=== PATIENT | male | born 1945 | race Caucasian/White ===

== ENCOUNTER 2024-03-01 07:40 | Emergency (ER) | payer OTHER ==
[~2024-03-01] VITALS: Ht 182.8 cm; Wt 79.8 kg
[2024-03-01] MEDS ORDERED: diphenhydrAMINE hydrochloride 50 MG/ML VIAL IV ONE (08:00)
[2024-03-01] MEDS ORDERED: SODIUM CHLORIDE 0.9% 1,000 ML IV ONE (08:00)
[2024-03-01] MEDS ORDERED: FAMOTIDINE 50 ML IV ONE (08:00)
[2024-03-01] MEDS ORDERED: Metoclopramide Hydrochloride 10 MG/2 ML AMP IV ONE (08:00)
[2024-03-01 08:17] LABS: BASO % 0.6 % (0.0-1.0); EOS % 0.8 % (1.0-4.0); LYMPH # 1.1 10*3/uL (1.3-4.4); LYMPH % 22.6 % (27.0-41.0); MEAN CELL VOLUME 91.9 fl (80.0-94.0); MEAN CORPUSCULAR HGB 30.6 pg (27.0-31.0); MEAN CORPUSCULAR HGB CONC 33.3 g/dl (33.0-37.0); MEAN PLATELET VOLUME 9.9 fl (9.6-12.3); MONO # 0.7 10*3/uL (0.1-1.0); MONO % 15.1 % (3.0-9.0); NEUT # 2.9 10*3/uL (2.3-7.9); NEUT % 60.5 % (47.0-73.0); PLATELET COUNT AUTOMATED 234 10*3/uL (130-400); RED BLOOD COUNT 5.55 10*6/uL (4.50-5.90); RED CELL DISTRI WIDTH 13.1 % (0-14.5); WHITE BLOOD COUNT 4.8 10*3/uL (4.8-10.8)
[2024-03-01 08:38] LABS: ALKALINE PHOSPHATASE 74 U/L (46-116); BUN 26 mg/dl (9-23); CHLORIDE 102 mmol/L (98-107); LIPASE 43 U/L (12-53); POTASSIUM 3.3 mmol/L (3.4-5.1); SGPT/ALT 28 U/L (5-49); TOTAL PROTEIN 7.7 gm/dL (6.0-8.0)
[2024-03-01] MEDS ORDERED: POTASSIUM CHLORIDE 20 MEQ TAB PO ONE (08:40)
[2024-03-01] MEDS ORDERED: ONDANSETRON4 MG SL (09:04)
[2024-03-01] MEDS ORDERED: CIPRO500 MG PO (09:04)
== END 2024-03-01 09:13 | disposition home or self-care (01) ==
LOC: ED 07:40
PROVIDERS: Emergency Medicine
DX: R53.1 Weakness (principal); E87.6 Hypokalemia; R11.2 Nausea with vomiting, unspecified; R19.7 Diarrhea, unspecified